=== PATIENT | female | born 2005 | race Caucasian/White ===

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

== ENCOUNTER 2024-11-11 19:16 | Emergency (ER) | payer BC ==
[2024-11-11 19:32] VITALS: BP 168/111; PULSE 69
[2024-11-11] MEDS: Ibuprofen 600 MG Tab PO ONE (20:32)
== END 2024-11-11 20:45 | disposition home or self-care (01) ==
LOC: MW.ED 19:16
DX: J02.9 Acute pharyngitis, unspecified (principal); Z75.8 Other problems related to medical facilities and other health care
CPT/HCPCS: 87651; 96374; 99283; A9270; J1100; 99282